=== PATIENT | male | born 1950 | race Caucasian/White ===

== ENCOUNTER 2024-03-26 18:46 | Emergency (ER) | payer MEDICARE, BC ==
[2024-03-26 19:35] LABS: BASOPHILS PERCENT AUTO 0.6 % (0.0-1.0); EOSINOPHILS ABSOLUTE AUTO 0.4 K/mm3 (0.0-0.4); EOSINOPHILS PERCENT AUTO 5.5 % (0.0-6.0); HEMOGLOBIN 14.3 gm/dl (14.0-18.0); IMMATURE GRAN ABSOLUTE AUTO 0.01 K/mm3 (0.00-0.05); IMMATURE GRAN PERCENT AUTO 0.2 % (0.0-0.4); LYMPHOCYTES ABSOLUTE AUTO 2.1 K/mm3 (1.0-4.8); LYMPHOCYTES PERCENT AUTO 32.4 % (24.0-44.0); MEAN CORPUSCULAR VOLUME 88.2 fl (83.0-99.0); MEAN PLATELET VOLUME 9.9 fl (9.4-12.4); MONOCYTES ABSOLUTE AUTO 0.7 K/mm3 (0.0-0.8); MONOCYTES PERCENT AUTO 9.9 % (0.0-8.0); NEUTROPHILS ABSOLUTE AUTO 3.4 K/mm3 (1.8-7.7); NEUTROPHILS PERCENT AUTO 51.4 % (41.0-71.0); PLATELET COUNT,PLT 298 K/mm3 (150-400); RED BLOOD CELL COUNT 4.76 M/mm3 (4.52-5.90); WHITE BLOOD CELL COUNT,WBC 6.54 K/mm3 (3.9-11.3)
[2024-03-26] MEDS: Sodium Chloride 0.9% 10 ML Syringe FLUSH PRN (20:00)
[2024-03-26 20:14] LABS: A/G RATIO 1.2 (1-2); ALBUMIN 4.2 g/dl (3.4-5.0); ANION GAP 12.7 (5-15); BILIRUBIN TOTAL 0.5 mg/dL (0.2-1.0); BUN/CREATININE RATIO 15.7 (14-18); CALCIUM 9.2 mg/dL (8.5-10.1); CREATININE 1.4 mg/dL (0.7-1.3); EST CRCL DRUG DOSING (CG) 46.14 mL/min; POTASSIUM,K 3.7 mEq/L (3.5-5.1); PROTEIN TOTAL,TP 7.8 g/dl (6.4-8.2)
[2024-03-26 20:34] LABS: MAGNESIUM 2.3 mg/dL (1.8-2.4); T4 FREE 0.89 ng/dL (0.76-1.46); TSH 2.865 uIU/mL (0.358-3.74)
[2024-03-26 21:11] LABS: APPEARANCE,URINE CLEAR (Clear); BILIRUBIN,URINE NEGATIVE (Negative); COLOR,URINE YELLOW (Yellow); GLUCOSE,URINE 1+ (Negative); KETONES,URINE NEGATIVE (Negative); LEUKOCYTE ESTERASE,URINE NEGATIVE (Negative); NITRITE,URINE NEGATIVE (Negative); OCCULT BLOOD,URINE NEGATIVE (Negative); PROTEIN,URINE TRACE (Negative); UROBILINOGEN,URINE 0.2 (0.2-1.0)
[2024-03-26 21:19] LABS: BACTERIA,URINE FEW /hpf (FEW); MUCUS,URINE FEW /hpf (FEW); RBC,URINE 0-5 /hpf (0-5); SQUAMOUS EPITHELIAL CELLS,UR 0-5 /hpf (0-5); WBC,URINE 0-5 /hpf (0-5)
== END 2024-03-26 21:37 | disposition home or self-care (01) ==
LOC: JD.ED 18:46
DX: R00.1 Bradycardia, unspecified (principal)
CPT/HCPCS: 36415; 80053; 81001; 83735; 84439; 84443; 84484; 85025; 93005; 99284; J3490

== ENCOUNTER 2024-11-19 06:00 | Day surgery (SDC) | payer MEDICARE, BC ==
[~2024-11-19 06:00] MED LIST: Sodium Chloride 0.9% 10 ML Syringe FLUSH PRN; Sodium Chloride 0.9% 10 ML Syringe FLUSH SCH
[2024-11-19] MEDS ORDERED: HYDROmorphone 0.5 MG/0.5 ML Syringe IVPUSH PRN (06:16)
[2024-11-19] MEDS ORDERED: fentaNYL 100 MCG/2 ML SDV IVPUSH PRN (06:16)
[2024-11-19] MEDS ORDERED: Ondansetron 4 MG/2 ML SDV IVPUSH PRN (06:16)
[2024-11-19] MEDS ORDERED: Propofol 200 MG/20 ML SDV ONE (06:17)
[2024-11-19] MEDS ORDERED: Midazolam 1 MG/ML 2 ML SDV ONE (06:17)
[2024-11-19] MEDS ORDERED: fentaNYL 100 MCG/2 ML SDV ONE (06:17)
[2024-11-19] MEDS ORDERED: Ropivacaine 0.5% 5 MG/ML 30 ML SDV ONE (06:18)
[2024-11-19] MEDS: Lactated Ringers 1,000 ML IV SCH (06:30)
[2024-11-19] MEDS: Pregabalin 25 MG Cap PO SCH (06:31)
[2024-11-19] MEDS: oxyCODONE ER 10 MG TAB.ER PO SCH (06:31)
[2024-11-19] MEDS: Albuterol/Ipratropium 3.0-0.5 MG/3 ML Neb Soln NEB ONE (06:31)
[2024-11-19] MEDS: Acetaminophen 325 MG Tab PO SCH (06:31)
[2024-11-19] MEDS ORDERED: ceFAZolin 2 GM Vial ONE (07:06)
[2024-11-19] MEDS ORDERED: ePHEDrine 50 MG/ML SDV ONE (07:17)
[2024-11-19] MEDS ORDERED: Dexamethasone 4 MG/ML 5 ML MDV ONE (07:48)
[2024-11-19] MEDS ORDERED: dexmedeTOMIDine HCl 200 MCG/2 ML SDV ONE (07:49)
[2024-11-19] MEDS: Morphine 8 MG, EPINEPHrine 0.3 MG, Cefuroxime 750 MG, Ketorolac 30 MG, Sodium Chloride ... PRN (08:06)
[2024-11-19] MEDS: VANCOmycin 1 GM SDV ONE (08:12)
[2024-11-19] MEDS: Tranexamic Acid 1,000 MG/10 ML Vial ONE (08:12)
[2024-11-19] MEDS: Triamcinolone Acetonide 40 MG/ML 1 ML SDV ONE (08:24)
[2024-11-19] MEDS: Bupivacaine 0.25% 10 ML SDV ONE (08:24)
[2024-11-19] MEDS ORDERED: Lactated Ringers 1,000 ML IV ONE (10:00)
[2024-11-19] MEDS: oxyCODONE 5 MG Tab PO PRN (10:30)
== END 2024-11-19 13:45 | disposition home or self-care (01) ==
LOC: JD.SDS 06:00
PROVIDERS: ATTEND Orthopaedic Surgery
DX: M17.0 Bilateral primary osteoarthritis of knee (principal); I10 Essential (primary) hypertension; E11.9 Type 2 diabetes mellitus without complications; E78.2 Mixed hyperlipidemia; Z87.891 Personal history of nicotine dependence; Z79.4 Long term (current) use of insulin; Z79.899 Other long term (current) drug therapy
CPT/HCPCS: 20610; 27447; 73560; 97110; 97116; 97161; A9270; C1713; C1776; J0171; J0665; J0690; J0697; J1100; J1885; J2250; J2272; J2704; J2795; J3010; J3301; J7120; J3490; J7620-GY

== ENCOUNTER 2025-07-14 20:09 | Emergency (ER) | payer MEDICARE, BC ==
[2025-07-15] MEDS: Sodium Chloride 0.9% 10 ML Syringe FLUSH PRN (00:24)
== END 2025-07-15 00:43 | disposition home or self-care (01) ==
LOC: JD.ED 20:09
DX: S62.630A Displaced fracture of distal phalanx of right index finger, initial encounter for closed fracture (principal); I10 Essential (primary) hypertension; E11.9 Type 2 diabetes mellitus without complications; Z79.899 Other long term (current) drug therapy; Z79.4 Long term (current) use of insulin; Z86.16 Personal history of COVID-19; W23.0XXA Caught, crushed, jammed, or pinched between moving objects, initial encounter
CPT/HCPCS: 12002; 73140; 96374; 99283; A9270; J0690; J2003; 29130